=== PATIENT | male | born 1995 | race Caucasian/White ===

== ENCOUNTER → 2016-08-21 | Outpatient (CLI) | payer OTHER ==
[~2016-08-21] MED LIST: CLIN-79 PO; SULF1TAB35 PO
--- NOTE | 2016-08-21 18:16 | Diagnostic Imaging Report ---
INDICATION: Back pain Thoracic spine AP and lateral views of the thoracic spine show normal vertebral body height and alignment. There are no compression fractures seen. Disc spaces are well maintained. IMPRESSION: Negative thoracic spine Dictated by: Dictated on workstation # [id number]
--- NOTE | 2016-08-21 18:21 | Diagnostic Imaging Report ---
INDICATION: Rib injury PA chest and oblique views of the ribs do not show any displaced fractures. There is no effusion or pneumothorax. IMPRESSION: Negative bilateral ribs Dictated by: Dictated on workstation # [id number]
== END ==
LOC: RAD 17:33
PROVIDERS: ATTEND Chiropractor
DX: M54.6 Pain in thoracic spine (principal); R07.81 Pleurodynia
CPT/HCPCS: 71110; 72072